=== PATIENT | female | born 1970 | race Caucasian/White ===

== ENCOUNTER 2024-07-13 18:50 | Emergency (ER) | payer OTHER, SELFPAY ==
[2024-07-13 18:52] VITALS: BP 214/119
[2024-07-13 19:46] VITALS: BP 191/94
--- NOTE | 2024-07-13 21:25 | ED.GENMED ---
History of Present Illness
General
Chief Complaint: Blood Pressure Problem
Source: patient
Exam Limitations: none
Time Seen by Provider: 07/13/24 20:51
History of Present Illness
History of Present Illness:
53-year-old female presents with elevated blood pressure readings at home. She has a history of hypertension. She used to take labetalol 100 mg twice a day but she weaned off this about 3 years ago. She has not needed it since then. She is
healthy and active otherwise. Today she was not feeling quite right and took her blood pressure and eventually her blood pressure went over 200 systolic and she presented here. She currently has no symptoms of chest pain headache vision change
shortness of breath. She did take 100 mg of labetalol prior to coming in.
Past History
Past History
ED Past Medical History: None
ED Past Surgical History: None
Social History
Tobacco: Non-smoker
Alcohol: None
Drug: None
Living: with family
Phy Exam
Physical Exam
Physical Exam:
General: Well-appearing female no acute respiratory distress
HEENT: Normocephalic atraumatic
Heart: Regular rate and rhythm no murmurs
Lungs: Clear no wheeze
Extremities: No cyanosis
Course
Vital Signs
Initial and Last Documented VS:
Initial Vital Signs
Temp Pulse Resp BP Pulse Ox
98.3 F 67 20 214/119 99
07/13/24 18:52 07/13/24 18:52 07/13/24 18:52 07/13/24 18:52 07/13/24 18:52
Last Documented Vital Signs
Temp Pulse Resp BP Pulse Ox
98.3 F 60 18 191/94 98
07/13/24 18:52 07/13/24 19:46 07/13/24 19:46 07/13/24 19:46 07/13/24 19:46
MDM/Problems Addressed
Differential Diagnosis Includes:
Patient presented with elevated blood pressure readings at home. Currently she is asymptomatic and currently in the room her blood pressure is 140s over 80s. This was after taking 100 mg of labetalol. Heart rate is in the upper 50s low 60s.
Without any symptoms no indication for any intervention with normalizing blood pressure. Will renew her blood pressure prescription for 50 mg of labetalol taken daily to begin with and follow-up with family doctor. Stable for discharge
*Critical Care Note
Total Time (30-74mins, 75-104mins- exclusive of procedures): Not Applicable
ED Attending Note
-
Portions of this chart may have been created with voice recognition software.� Occasional wrong word or��sound alike� substitutions may have occurred due to the inherent limitations of voice recognition software.
Discharge Plan
Departure
Patient Disposition: Home (Routine Discharge)
Date of Disposition: 07/13/24
Time of Disposition: 21:27
Patient with high blood pressure during this ER visit?: No
Discharge Problem:
Hypertension
Instructions: BLOOD PRESSURE
Prescriptions:
New
labetalol 100 mg tablet
50 mg PO BID Qty: 30 0RF
No Action
labetalol 100 MG tablet
100 mg PO BID Qty: 14 0RF
Referrals:
Jimena Scanlon CRNP [Family Provider] -
Activity Restrictions/Additional Instructions:
Please follow-up with your family doctor for blood pressure recheck. Take 50 mg of labetalol up to twice a day as needed for elevated blood pressure. Return if needed otherwise
Interventions
Interventions:
*General Assessment Last Done: 07/13/24 18:52
*Neglect/Abuse Screening Last Done: 07/13/24 19:47
ED- Fall Risk Assessment Last Done: 07/13/24 19:48
*ED COVID-19 Vaccine History Last Done: 07/13/24 19:47
ED- Cardiac Assessment Last Done: 07/13/24 19:48
ED- Neurological Assessment Last Done: 07/13/24 19:48
ED- Pulmonary Assessment Last Done: 07/13/24 19:48
Discharge Date and Time
Print Language: ESTONIAN
[2024-07-13 22:10] VITALS: BP 153/92
== END 2024-07-13 22:10 | disposition home or self-care (01) ==
LOC: EMR 18:50
PROVIDERS: EMERGENCY PHYSICIAN Student in an Organized Health Care Education/Training Program; FAMILY PHYSICIAN Nurse Practitioner
DX: I10 Essential (primary) hypertension (principal)
CPT/HCPCS: 99282